=== PATIENT | male | born 1965 | race Caucasian/White ===

== ENCOUNTER 2018-01-07 10:25 | Emergency (ER) | payer SELFPAY ==
[~2018-01-07] VITALS: Ht 165.1 cm; Wt 83.0 kg
[2018-01-07] MEDS ORDERED: KETOROLAC 60MG/2ML VIAL IM ONE (16:00)
[2018-01-07 16:05] VITALS: BP 159/105
== END 2018-01-07 18:27 | disposition home or self-care (01) ==
LOC: ER 10:25
DX: S83.8X2A Sprain of other specified parts of left knee, initial encounter (principal); I10 Essential (primary) hypertension; W18.39XA Other fall on same level, initial encounter; Y93.89 Activity, other specified; Y92.89 Other specified places as the place of occurrence of the external cause; Y99.8 Other external cause status
CPT/HCPCS: 73562; 96372; 99284; J1885; L1830